=== PATIENT | female | born 1965 | race Caucasian/White ===

== ENCOUNTER → 2016-07-07 | Day surgery (SDC) | payer OTHER ==
[~2016-07-07] VITALS: Ht 170.2 cm; Wt 56.7 kg
[2016-07-07] VITALS (11 sets, daily range): BP systolic 92–119; BP diastolic 58–80
[~2016-07-07] MED LIST: Bupivacaine 0.25% Inj 30ml INJ ONE; Bupivacaine w/Epi 0.25% 30ml Vial INJ ONE; Dexamethasone 4mg/ml vial ONE; DiphenhydrAMINE 50mg/ml Inj IVP PRN; Duramorph PF 10mg/10ml amp IV ONE; Hydromorphone 0.5mg/0.5ml inj IVP PRN; Kenalog-40 1ml Vial ONE; Ketorolac 30mg Inj IM ONE; Ketorolac 30mg Inj IV PRN; LR 1000ml 1,000 ML IVLG SCH; LR 1000ml ONE; Labetalol 5mg/ml 20ml vial IV PRN; Lidocaine 1% 10mg/ml/Epi 0.005mg/ml 30ml vial INJ ONE; Lidocaine 1% MPF 10mg/ml 5ml ONE; Metoclopramide 10mg/2ml Inj ONE; Midazolam 2mg/2ml Inj ONE; Morphine Sulfate PF 10 ML ONE; NS Irrig 4000ml IRRIG ONE; Norco 5mg/325mg tab ORAL PRN; Propofol 10mg/ml 20ml IV ONE; ceFAZolin 1gm/50ml Premix 50 ML IV ONE; celeBREX 200mg Cap **SURGERY PATIENTS ONLY ORAL ONE; fentaNYL 100 mcg/2 mL IV ONE; fentaNYL 100 mcg/2 mL IV PRN; oxyCONTIN 20mg tab ORAL ONE
--- NOTE | 2016-07-07 07:21 | Pre-Procedure Note/Attestation ---
Pre-Procedure Note/Attestation Complete Prior to Procedure Planned Procedure: left Procedure Narrative: knee arthroscopy, possible synovectomy Indications for Procedure Pre-Operative Diagnosis: left knee internal derangement Attestation I attest that I discussed the nature of the procedure; its benefits; risks and complications; and alternatives (and the risks and benefits of such alternatives ), prior to the procedure, with the patient (or the patient's legal packaging sales representative). I attest that, if there was a reasonable possibility of needing a blood transfusion, the patient (or the patient's legal packaging sales representative) was given the [facility] standardized written summary, pursuant to the [employer]ati Blood Safety Act ([place] Health and Safety Code # 1645, as amended). I attest that I re-evaluated the patient just prior to the surgery and that there has been no change in the patient's H&P, except as documented below: KAYLEEN ARGUELLO Jul 07, 2016 07:21
--- NOTE | 2016-07-07 07:22 | Operative Note - PDOC ---
Operative Note Operative Note Pre-op Diagnosis: left knee internal derangement Procedure: left knee artheoscopy Post-op Diagnosis: same as pre-op plus Operative Findings: consistent w/pre-op dx studies Anesthesia: MAC Specimen: none Complications: none Condition: stable Estimated Blood Loss: none Implant(s) used?: KAYLEEN Su Jul 07, 2016 07:22
--- NOTE | 2016-07-07 08:12 | Anethesia Preoperative Eval ---
Anesthesia Pre-op PMH/ROS General Date of Evaluation: Jul 07, 2016 Anesthesiologist: Bobby ASA Score: ASA 1 Mallampati Score Class I : Soft palate, uvula, fauces, pillars visible Class II: Soft palate, uvula, fauces visible Class III: Soft palate, base of uvula visible Class IV: Only hard plate visible Mallampati Classification: Class I Surgeon: Shahriar Diagnosis: Left internal knee derangement Surgical Procedure: Left knee arthroscopy and synovectomy Anesthesia History: none Family History: no anesthesia problems Allergies: Coded Allergies: No Known Allergies (Unverified , 07/06/16) Medications: see eMAR Past Medical History Cardiovascular: Denies: CAD, HTN, SC, arrhythmia, other, valve dz Pulmonary: Denies: COPD, COLLEEN, asthma, other Gastrointestinal/Genitourinary: Denies: CRI, ESRD, GERD, other Neurologic/Psychiatric: Denies: CVA, TIA, dementia, depression/anxiety, other Endocrine: Denies: DM, hypothyroidism, other, steroids HEENT: Denies: WRANGELL (L), WRANGELL (R), cataract (L), cataract (R), glaucoma, other Hematology/Immune: Denies: DVT, anemia, bleeding disorder, other Musculoskeletal/Integumentary: Denies: DDD, DJD, OA, RA, edema, other PSxH Narrative: Bilateral breast cyst removal Anesthesia Pre-op Phys. Exam Physician Exam see chart Constitutional: NAD Cardiovascular: RRR Respiratory: CTA Airway Exam Mallampati Score: Class I MO: full ROM: full Teeth: intact Anesthesia Pre-op A/P Labs see chart Studies Pre-op Studies: EKG - sr Risk Assessment & Plan Assessment: ASA I Plan: GA Status Change Before Surgery: No Pre-Antibiotics Drug: Ancef 1g Given Within 1 Hr of Incision: Yes MELBA MIKE M.D. Jul 07, 2016 08:12
--- NOTE | 2016-07-07 09:02 | Immediate Post-Op Evaluation ---
Immediate Post-Op Evalulation Immediate Post-Op Evalulation Procedure: Left knee arthroscopy and synovectomy Date of Evaluation: Jul 07, 2016 Time of Evaluation: 09:44 IV Fluids: 400 Blood Products: 0 Estimated Blood Loss: min Urinary Output: 0 Blood Pressure Systolic: 92 Blood Pressure Diastolic: 58 Pulse Rate: 67 Respiratory Rate: 16 O2 Sat by Pulse Oximetry: 100 Temperature (Fahrenheit): 97.8 Pain Score (1-10): 0 Nausea: No Vomiting: No Complications 0 Patient Status: awake, reacts, patent, none Hydration Status: adequate Drug: Ancef 1g Given Within 1 Hr of Incision: MELBA Vital M.D. Jul 07, 2016 09:02
--- NOTE | 2016-07-07 09:02 | 48 Hour Post Anesthesia Eval ---
Post Anesthesia Evaluation Procedure: Left knee arthroscopy and synovectomy Date of Evaluation: Jul 07, 2016 Blood Pressure Systolic: 109 0: 69 Pulse Rate: 70 Respiratory Rate: 16 O2 Sat by Pulse Oximetry: 100 Airway: patent Nausea: No Vomiting: No Pain Intensity: 0 Hydration Status: adequate Cardiopulmonary Status: at baseline Mental Status/LOC: patient returned to baseline Post-Anesthesia Complications: 0 Follow-up care needed: ready to discharge MELBA MIKE M.D. Jul 07, 2016 09:02
--- NOTE | 2016-07-07 19:08 | Operative Note - Dictated ---
DATE OF OPERATION: 07/07/2016 PREOPERATIVE DIAGNOSIS: Left knee internal derangement. POSTOPERATIVE DIAGNOSES: 1. Left knee hypertrophic synovial tissue of medial and lateral patellofemoral compartment. 2. Symptomatic medial plica. PROCEDURES: 1. Left knee diagnostic arthroscopy. 2. Synovectomy of medial and lateral patellofemoral compartment. SURGEON: Nehemiah Bess M.D. ANESTHESIA: MAC or general. INDICATION FOR PROCEDURE: The patient is a pleasant female, who has had progressive anterior knee pain, but MRI showed a possible signal change along the medial meniscus. After failing conservative treatment, she elected to undergo a left knee arthroscopic medial meniscectomy. Risks, limitations, expectations, and complication of the procedure were discussed in detail. All questions addressed. DESCRIPTION OF PROCEDURE: An informed consent was obtained. The patient was taken to the operative room and placed under general anesthesia. Tourniquet was applied to the left proximal thigh. Left leg was prepped and draped in a sterile manner. Time-out was performed. Esmarch was used to exsanguinate the extremity. Inferolateral stab incision was then made. Of note, there is significant resistance introducing the trocar into the patellofemoral compartment. Once that was done, a systematic diagnostic arthroscopy was performed. There is hypertrophic synovial tissue in the retropatellar space area as well as the medial compartment. A medial working portal was established. Synovectomy in the retropatellar space area and medial compartment was performed to better gain entrance and visualization of the medial compartment. Medial meniscus was probed and noted to be intact. The ligamentum mucosa was debrided to visualize the anterior cruciate ligament. The anterior cruciate ligament was probed and noted to be intact. Lateral compartment was entered and free of any meniscal chondral damage. At this point, the camera was placed in the retropatellar space area and the synovectomy was completed. Instruments removed. Portal sites were closed with 3-0 Monocryl sutures. Intraarticular injection containing 0.25% Marcaine with epinephrine, 30 mg of Toradol, 5 mL of Duramorph, and 40 mg of Kenalog was injected. The patient was awoken and taken to recovery room with stable vital signs. ESTIMATED BLOOD LOSS: None. COMPLICATIONS: None. SPECIMENS: None. IMPLANTS: None. Nehemiah Bess M.D. DR: VITOR JOB#: [id number] CC: BRADLEY
== END | disposition home or self-care (01) ==
LOC: SUR 07:50
DX: M67.262 Synovial hypertrophy, not elsewhere classified, left lower leg (principal); M67.52 Plica syndrome, left knee; I34.1 Nonrheumatic mitral (valve) prolapse
CPT/HCPCS: 29876; J0690; J1100; J1885; J2250; J2274; J2405; J2704; J2765; J3010; J3301; J3490; J7120; 94003; 94150